=== PATIENT | male | born 1955 | race Caucasian/White ===

== ENCOUNTER 2023-04-07 07:42 | Emergency (ER) | payer MEDICARE, OTHER ==
[~2023-04-07] VITALS: Ht 175 cm; Wt 100.0 kg
[2023-04-07 07:57] VITALS: BP 149/86
[2023-04-07] MEDS ORDERED: morphine INJ 10 MG/ML 1ML (SYR OR VIAL) IVP STA (08:01)
--- NOTE | 2023-04-07 08:05 | ED General ---
General Chief Complaint: Back Problems Stated Complaint: LOWER BACK PAIN SIDE PAIN Nursing Triage Note: left flank pain w bloody urine that began 2 days ago Source of Information: Patient Exam Limitations: No Limitations History of Present Illness Date Seen by Provider: Apr 07, 2023 Time Seen by Provider: 07:54 Initial Comments 67-year-old male presents to the emergency department today for left flank pain. Symptoms started this morning and have been worsening since onset. Is described as sharp stabbing sensation in his left flank that radiates to his left anterior abdomen. He tried some Tylenol without much relief. Normal urination and bowel movements. No fevers or chills. He has had dry heaving but no vomiting. Has never had similar pains in the past. He tells me he believes he has a kidney stone or may have ruptured a cyst as he has a baseball sized cyst on his left kidney. All other systems reviewed and negative except documented per HPI. Voice recognition software was used to help create this chart Allergies and Home Medications Allergies Coded Allergies: No Known Drug Allergies (Unverified , 04/07/23) Patient Home Medication List Home Medication List Reviewed: Yes Review of Systems Review of Systems Constitutional: see HPI Past Esoposy-Tseivt-Xbgzml Hx Patient Social History Tobacco Use?: No Use of E-Cig and/or Vaping dev: No Substance use?: No Alcohol Use?: No Pt feels they are or have been: No Past Medical History Surgery/Hospitalization HX: neck fusion, HTN Physical Exam Vital Signs Vital Signs - First Documented 04/07/23 07:57 Temp 36.4 Pulse 88 Resp 20 B/P (MAP) 149/86 (107) Pulse Ox 98 Capillary Refill : Less Than 3 Seconds Height, Weight, BMI Height: '" Weight: lbs. oz. kg; 32.00 BMI Method: General Appearance: Mild Distress (Appears to be in pain) HEENT: Normal ENT Inspection, Pharynx Normal Neck: Full Range of Motion, Supple Respiratory: Chest Non Tender, Lungs Clear, Normal Breath Sounds, No Accessory Muscle Use, No Respiratory Distress Cardiovascular: Regular Rate, Rhythm, No Murmur, Normal Peripheral Pulses Gastrointestinal: Normal Bowel Sounds, No Organomegaly, Non Tender, Soft Back: Normal Inspection, No Vertebral Tenderness, CVA Tenderness (L) Extremity: Normal Capillary Refill, Normal Inspection, Non Tender, No Calf Tend erness Neurologic/Psychiatric: Alert, Oriented x3, Normal Mood/Affect Skin: Normal Color, Warm/Dry Progress/Results/Core Measures Suspected Sepsis SIRS Temperature: Pulse: 88 Respiratory Rate: 20 Laboratory Tests 04/07/23 08:08: White Blood Count 7.4 Blood Pressure 149 /86 Mean: 107 Laboratory Tests 04/07/23 08:08: Creatinine 1.78H, Platelet Count 270 Results/Orders Lab Results Laboratory Tests Test 04/07/23 08:08 Range/Units White Blood Count 7.4 4.3-11.0 10^3/uL Red Blood Count 4.44 4.30-5.52 10^6/uL Hemoglobin 12.9 L 13.3-17.7 g/dL Hematocrit 38 L 40-54 % Mean Corpuscular Volume 87 80-99 fL Mean Corpuscular Hemoglobin 29 25-34 pg Mean Corpuscular Hemoglobin Concent 34 32-36 g/dL Red Cell Distribution Width 11.8 10.0-14.5 % Platelet Count 270 130-400 10^3/uL Mean Platelet Volume 10.1 9.0-12.2 fL Immature Granulocyte % (Auto) 1 % Neutrophils (%) (Auto) 71 42-75 % Lymphocytes (%) (Auto) 16 12-44 % Monocytes (%) (Auto) 10 0-12 % Eosinophils (%) (Auto) 2 0-10 % Basophils (%) (Auto) 0 0-10 % Neutrophils # (Auto) 5.2 1.8-7.8 10^3/uL Lymphocytes # (Auto) 1.2 1.0-4.0 10^3/uL Monocytes # (Auto) 0.7 0.0-1.0 10^3/uL Eosinophils # (Auto) 0.1 0.0-0.3 10^3/uL Basophils # (Auto) 0.0 0.0-0.1 10^3/uL Immature Granulocyte # (Auto) 0.1 0.0-0.1 10^3/uL Percent Immature Platelet Fraction 4.1 0.0-7.6 % Sodium Level 134 L 135-145 MMOL/L Potassium Level 4.6 3.6-5.0 MMOL/L Chloride Level 100 98-107 MMOL/L Carbon Dioxide Level 20 L 21-32 MMOL/L Anion Gap 14 5-14 MMOL/L Blood Urea Nitrogen 27 H 7-18 MG/DL Creatinine 1.78 H 0.60-1.30 MG/DL Estimat Glomerular Filtration Rate 41 BUN/Creatinine Ratio 15 Glucose Level 121 H 70-105 MG/DL Calcium Level 9.6 8.5-10.1 MG/DL My Orders Orders - JOSEMANUEL BECK DO Cbc With Automated Diff (04/07/23 08:01) Basic Metabolic Panel (04/07/23 08:01) Ua Culture If Indicated (04/07/23 08:01) Ct Abdomen/Pelvis Wo (04/07/23 08:01) Ketorolac Injection (Ketorolac Injection (04/07/23 08:15) Morphine Injection (Morphine Injection (04/07/23 08:01) Ondansetron Injection (Ondansetron Inj (04/07/23 08:15) Ns Iv 1000 Ml (Ns Iv 1000 Ml) (04/07/23 08:15) Medications Given in ED Current Medications Medications Dose Ordered Sig/Sophia Route Start Time Stop Time Status Last Admin Dose Admin Ketorolac Tromethamine 15 mg ONCE ONCE IVP 04/07/23 08:15 04/07/23 08:16 DC 04/07/23 08:18 15 MG Ondansetron HCl 4 mg ONCE ONCE IVP 04/07/23 08:15 04/07/23 08:16 DC 04/07/23 08:18 4 MG Vital Signs/I&O 04/07/23 07:57 Temp 36.4 Pulse 88 Resp 20 B/P (MAP) 149/86 (107) Pulse Ox 98 Capillary Refill : Less Than 3 Seconds Blood Pressure Mean: 107 Departure Communication (Admissions) Patient is hemodynamically stable. His pain is completely relieved with the therapies provided. CT scan shows a stone that is likely dropped into the bladder or that is just at the UVJ at this time. He is afebrile. He does tell me that he was seen in the walk-in clinic couple days ago for what he thought was blood in his urine. He was given 3 days of antibiotics though admittedly he did not have any bacteria or white blood cells in his urine at that time. He denies any fevers chills, dysuria or other symptoms consistent with UTI. He is on his last day of antibiotics. He was unable to provide a urine sample and I think it is appropriate given that he has already been on antibiotics. We will go ahead and discharged home in stable condition with pain control Impression Primary Impression: Ureterolithiasis Disposition: HOME, SELF-CARE Condition: Stable Departure-Patient Inst. Referrals: LEANA LAZO DO (PCP/Family) Primary Care Physician Patient Instructions: Kidney Stone, Adult ED Add. Discharge Instructions: You are seen in the emergency department today for pain in her left flank. You have a kidney stone that is likely dropped in your bladder at this time. Please increase your fluids at home and rest. Use the pain medication as prescribed as needed. Use the nausea medicine as needed by dissolving it under your tongue. Return to the emergency department immediately for any severe pain is not controlled medications or if your symptoms change in any way otherwise concerning to you. The pain medication may make you drowsy so do not drive or make important decisions while taking it. This may also cause constipation so I recommend you use a stool softener should you need the pain medication. All discharge instructions reviewed with patient and/or family. Voiced understanding. Scripts Ondansetron (Ondansetron Odt) 8 Mg Tab.rapdis 8 MG SL Q6H PRN for NAUSEA/VOMITING for 3 Days, #12 TAB Prov: JOSEMANUEL BECK DO 04/07/23 Hydrocodone/Acetaminophen (Hydrocodone-Acetamin 5-325 mg) 5 Mg-325 Mg Tablet 1 TAB PO Q4H PRN for PAIN-MODERATE (5-7) for 3 Days, #12 TAB Prov: JOSEMANUEL BECK DO 04/07/23 JOSEMANUEL BECK DO Apr 07, 2023 08:05
[2023-04-07] MEDS ORDERED: ONDANSETRON INJECTION 4 MG/2 ML (SDV) IVP ONE (08:15)
[2023-04-07] MEDS ORDERED: KETOROLAC INJ 15 MG/ML VIAL IVP ONE (08:15)
[2023-04-07] MEDS ORDERED: NS IV 1000 ML 1,000 ML IV SCH (08:15)
[2023-04-07 08:23] LABS: BASOPHILS % (AUTO) 0 % (0-10); EOSINOPHILS # (AUTO) 0.1 10^3/uL (0.0-0.3); EOSINOPHILS % (AUTO) 2 % (0-10); HEMATOCRIT 38 % (40-54); HEMOGLOBIN 12.9 g/dL (13.3-17.7); LYMPHOCYTES # (AUTO) 1.2 10^3/uL (1.0-4.0); LYMPHOCYTES % (AUTO) 16 % (12-44); MEAN CORPUSCULAR HEMOGLOBIN 29 pg (25-34); MEAN CORPUSCULAR HGB CONC 34 g/dL (32-36); MEAN CORPUSCULAR VOLUME 87 fL (80-99); MEAN PLATELET VOLUME 10.1 fL (9.0-12.2); MONOCYTES # (AUTO) 0.7 10^3/uL (0.0-1.0); MONOCYTES % (AUTO) 10 % (0-12); NEUTROPHILS # (AUTO) 5.2 10^3/uL (1.8-7.8); NEUTROPHILS % (AUTO) 71 % (42-75); PLATELET COUNT 270 10^3/uL (130-400); WHITE BLOOD COUNT 7.4 10^3/uL (4.3-11.0)
--- NOTE | 2023-04-07 08:52 | Diagnostic Imaging Report ---
PROCEDURE: CT abdomen and pelvis without contrast. TECHNIQUE: Multiple contiguous axial images were obtained through the abdomen and pelvis without the use of intravenous contrast. Auto Exposure Controls were utilized during the CT exam to meet ALARA standards for radiation dose reduction. INDICATION: Left flank pain. COMPARISON: No prior studies are available for comparison. FINDINGS: The lung bases are clear. There is a small low-attenuation lesion in the left lobe of the liver measuring 17 mm in size, likely a small cyst. The gallbladder is surgically absent. There is no biliary ductal dilatation. The pancreas and spleen are unremarkable. No adrenal mass is identified. There are multiple low-attenuation lesions involving both kidneys with the largest in the upper pole of the left kidney measuring 7.2 cm, most consistent with cysts. There is a tiny approximately 2 mm calculus located at the left UVJ or just entering the bladder. The left ureter is slightly prominent. There is some slight prominence of the left renal collecting system as well. The right renal collecting system and right ureter are unremarkable. The prostate is unremarkable. There is a fat-containing left inguinal hernia. The bowel loops are nonobstructed. There is extensive diverticulosis of the descending and sigmoid colon but no evidence of acute diverticulitis. No free fluid or fluid collection is identified. IMPRESSION: 1. Bilateral renal cysts. There does appear to be a small approximately 2 mm calculus either at the left UVJ or just entering the bladder. There is some mild left-sided hydroureteronephrosis. 2. Uncomplicated diverticulosis. 3. Fat-containing left inguinal hernia. Dictated by: Dictated on workstation # [id number]
[2023-04-07 08:57] LABS: CALCIUM 9.6 MG/DL (8.5-10.1); CREATININE SERUM 1.78 MG/DL (0.60-1.30); POTASSIUM 4.6 MMOL/L (3.6-5.0)
[2023-04-07] MEDS ORDERED: morphine INJ 4 MG/ML 1 ML (VIAL/SYRINGE) IV STA (09:04)
[2023-04-07] MEDS ORDERED: ACHD5005 PO (09:06)
[2023-04-07] MEDS ORDERED: ONDA8TAB13 SL (09:06)
== END 2023-04-07 09:15 | disposition home or self-care (01) ==
LOC: ER FS 07:47
DX: N20.1 Calculus of ureter (principal)
CPT/HCPCS: 36415; 74176; 80048; 85025